=== PATIENT | female | born 1975 | race Caucasian/White ===

== ENCOUNTER 2016-06-11 20:29 | Emergency (ER) | payer OTHER ==
--- NOTE | 2016-06-11 20:46 | ED.PDOC ---
History of Present Illness - General Time Seen by Provider: 06/11/16 20:45 Source: patient, RN notes reviewed Exam Limitations: no limitations - History of Present Illness Initial Comments: Ms. Ivory James 41 y/o female working in a [employer] company stated that she was working on a concrete wall with a hammer felt something got into her left eye she tried to flushed it with water after the incident but left eye continue to hurt. Timing/Duration: this afternoon EENT Location: eye (L) Prearrival Treatment: flushing eyes Improving Factors: nothing Worsening Factors: other - photophobia Associated Symptoms: denies symptoms Allergies/Adverse Reactions: Allergies Sulfa Antibiotics Allergy (Verified 08/17/14 22:51) Home Medications: Ambulatory Orders predniSONE [Prednisone] 60 mg PO DAILY #18 tab 06/09/15 Cyclobenzaprine HCl [Flexeril] 10 mg PO Q6HRS PRN #20 tab 06/16/15 Tramadol HCl [Ultram] 50 mg PO Q6HRS PRN #30 tab 06/16/15 Review of Systems - Review of Systems Constitutional: States: no symptoms reported EENTM: States: see HPI Respiratory: States: no symptoms reported Cardiology: States: no symptoms reported Gastrointestinal/Abdominal: States: no symptoms reported Genitourinary: States: no symptoms reported Musculoskeletal: States: no symptoms reported Skin: States: no symptoms reported Neurological: States: no symptoms reported Endocrine: States: no symptoms reported Hematologic/Lymphatic: States: no symptoms reported Past Medical History (General) - Patient Medical History Hx Seizures: No Hx Stroke: No Hx Dementia: No Hx Asthma: No Hx of COPD: No Hx Cardiac Disorders: No Hx Congestive Heart Failure: No Hx Pacemaker: No Hx Hypertension: No Hx Thyroid Disease: No Hx Diabetes: No Hx Renal Disease: No Hx Cancer: No Hx of HIV: No Hx Hepatitis C: No Hx MRSA: No - Vaccination History Hx Tetanus, Diphtheria Vaccination: No Hx Influenza Vaccination: No Hx Pneumococcal Vaccination: No - Social History Hx Tobacco Use: Yes Hx Chewing Tobacco Use: No Hx Alcohol Use: Yes Hx Substance Use: No Hx Substance Use Treatment: No Hx Depression: Yes - occ Hx Physical Abuse: No Hx Emotional Abuse: No Hx Suspected Abuse: No - Female History Patient : No Family Medical History - Family History Mother Family History: No Known Living Status: Still Living Physical Exam - Physical Exam General Appearance: Alert, Anxious, No apparent distress Eye Exam: right normal, left other - hyperemic palpebral conjunctiva Skin Exam: normal color, warm/dry Comments: Alcaine eye drops instilled to left eye conjunctival [place] everted no FB noted fluorescein dye was instilled with positive uptake superior portion cornea left eye Progress - Results/Orders Results/Orders: [facility] left eye 20/20 right eye20/25 ou-20/20 - EKG/XRAY/CT Comments: left eyeball-no foreign body Departure - Departure Clinical Impression: Corneal abrasion, left Qualifiers: Encounter type: initial encounter Qualifier Code: (S05.02XA) Injury of conjunctiva and corneal abrasion without foreign body, left eye, initial encounter Time of Disposition: 22:47 Disposition: Discharge to Home or Self Care Condition: Good Instructions: DI for Corneal Abrasion, Corneal Abrasion Home Medications: Ambulatory Orders predniSONE [Prednisone] 60 mg PO DAILY #18 tab 06/09/15 Cyclobenzaprine HCl [Flexeril] 10 mg PO Q6HRS PRN #20 tab 06/16/15 Tramadol HCl [Ultram] 50 mg PO Q6HRS PRN #30 tab 06/16/15 Additional Instructions: Continue with Gentamicin eye drops 2 drops left eye 3x a day for 7 days;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
--- NOTE | 2016-06-11 22:40 | RAD ---
Procedure: XR EYE FOREIGN BODY Exam Date: 06/11/2016 Ordering Provider: Froy Pinto Clinical Indication: Foreign body Comparison: None Findings: There is no displaced facial bone fracture. The orbital rims are intact. The paranasal sinuses are clear. There are no lytic or sclerotic lesions. No radiopaque foreign bodies visualized. Impression: 1. No radiopaque foreign bodies visualized. Electronically signed by: Eduar Mccoy MD 06/11/2016 10:40 PM CDT
[2016-06-11] MEDS ORDERED: HYDROCOD/APAP 10/325 (ER DISP) # 3 tablets PO ONE (22:50)
[2016-06-11] MEDS ORDERED: GENTAMICIN OPTH SOL 0.3% 5ML BOTTLE OPHTH ONE (23:00)
[2016-06-11 23:09] VITALS: BP 108/73; TEMP 97.2; O2SAT 97
== END 2016-06-11 23:07 | disposition home or self-care (01) ==
LOC: ER 20:29
DX: S05.02XA Injury of conjunctiva and corneal abrasion without foreign body, left eye, initial encounter (principal); Z88.2 Allergy status to sulfonamides; Z87.891 Personal history of nicotine dependence; X58.XXXA Exposure to other specified factors, initial encounter; Y93.H3 Activity, building and construction; Y99.0 Civilian activity done for income or pay

== ENCOUNTER → 2017-04-08 | Outpatient (CLI) | payer OTHER | LOC: YCFC.O 11:10 | PROVIDERS: ATTEND Nurse Practitioner Family | DX: R68.89 Other general symptoms and signs (principal) ==

== ENCOUNTER 2018-04-18 10:46 | Emergency (ER) | payer SELFPAY ==
[2018-04-18] MEDS ORDERED: SODIUM CHLORIDE 0.9% (FLUSH) 10 ML SYG IV PRN (11:06)
[2018-04-18] MEDS ORDERED: ASPIRIN TABLET 325 MG TAB PO ONE (11:06)
--- NOTE | 2018-04-18 11:18 | ED.PDOC ---
History of Present Illness - General Chief Complaint: Chest Pain/HI Stated Complaint: Chest discomfort, anxiety Time Seen by Provider: 04/18/18 11:06 Source: patient - History of Present Illness Initial Comments: PT PRESENTS TO THE ER WITH COMPLAINT OF CHEST TIGHTNESS AND SOB THAT BEGAN SHORTLY BEFORE ARRIVAL. PT REPORTS BEING UNDER A LOT OF STRESS RECENTLY. PT DENIES MEDICAL HISTORY BUT ADMITS TO SMOKING CIGARETTES AND MARIJUANA DAILY. PT REPORTS HISTORY OF METH USE BUT STATES HASNT USED IN SEVERAL MONTHS. Timing/Duration: 1-3 hours Severity/Quality: moderate, tightness Location: substernal Chest Pain Radiation: no radiation Activities at Onset: none Improving Factors: nothing Worsening Factors: nothing Nitro Today/Relief: no nitro taken today Aspirin Treatment Today: no aspirin today Allergies/Adverse Reactions: Allergies Sulfa Antibiotics Allergy (Verified 04/18/18 10:54) Rash Home Medications: Ambulatory Orders NK 04/18/18 Review of Systems - Review of Systems Constitutional: Denies: chills, fever EENTM: Denies: nose congestion, throat pain Respiratory: States: short of breath. Denies: cough Cardiology: States: chest pain, palpitations. Denies: syncope Gastrointestinal/Abdominal: Denies: abdominal pain, diarrhea, nausea, vomiting Genitourinary: Denies: dysuria, frequency Musculoskeletal: Denies: joint pain, joint swelling Skin: Denies: change in color, lesions Neurological: States: anxiety, emotional problems Endocrine: States: no symptoms reported Past Medical History (General) - Patient Medical History Hx Seizures: No Hx Stroke: No Hx Dementia: No Hx Asthma: No Hx of COPD: No Hx Cardiac Disorders: No Hx Congestive Heart Failure: No Hx Pacemaker: No Hx Hypertension: No Hx Thyroid Disease: No Hx Diabetes: No Hx Renal Disease: No Hx Cancer: No Hx of HIV: No Hx Hepatitis C: No Hx MRSA: No Surgical History: no surgical history - Vaccination History Hx Tetanus, Diphtheria Vaccination: No Hx Influenza Vaccination: No Hx Pneumococcal Vaccination: No - Social History Hx Tobacco Use: Yes - 1/2 to 1 pack per day Hx Chewing Tobacco Use: No Hx Alcohol Use: Yes - Occasional Hx Substance Use: Yes - Marijuana Hx Substance Use Treatment: No Hx Depression: Yes - occ Hx Physical Abuse: No Hx Emotional Abuse: No Hx Suspected Abuse: No - Female History Patient is a Female of Child Bearing Age (10 -59 yrs old): Yes Patient : No Family Medical History - Family History Mother Family History: No Known Living Status: Still Living Physical Exam - Physical Exam General Appearance: Alert, Anxious, Well Developed, Well Groomed, Well Hydrated, Other - TEARFUL Eyes, Ears, Nose, Throat Exam: PERRL/EOMI, normal ENT inspection Neck: supple, normal inspection Respiratory: lungs clear, normal breath sounds, no respiratory distress Cardiovascular/Chest: regular rate, rhythm, no murmur Gastrointestinal/Abdominal: non tender, soft Neurologic: alert, oriented x 3 Skin Exam: normal color, warm/dry Progress - Progress Progress: 04/18/18 12:44 PT RESTING COMFORTABLY AND REPORTS COMPLETE RESOLUTION OF SYMPTOMS AFTER 0.5MG IV ATIVAN. LABS AND DIAGNOSTICS DISCUSSED. WILL REFER TO [facility] OR KRYSTINA GARCIA FOR EVALUATION FOR ANXIETY. - Results/Orders Results/Orders: Laboratory Tests 04/18/18 11:00 WBC 7.6 RBC 4.22 Hgb 13.6 Hct 40.6 MCV 96.1 MCH 32.3 H MCHC 33.6 RDW 13.1 Plt Count 347 MPV 6.5 L Absolute Neuts (auto) 4.20 Absolute Lymphs (auto) 2.50 Absolute Monos (auto) 0.50 Absolute Eos (auto) 0.30 Absolute Basos (auto) 0.00 Neutrophils % 55.3 Lymphocytes % 32.7 Monocytes % 7.1 Eosinophils % 4.4 Basophils % 0.5 PT 9.1 INR 0.91 PTT (SP) 23.7 Sodium 139 Potassium 3.7 Chloride 107 Carbon Dioxide 22 Anion Gap 13.7 BUN 11 Creatinine 0.59 L BUN/Creatinine Ratio 18.6 Random Glucose 82 Serum Osmolality 276.0 Calcium 9.4 Magnesium 2.0 Creatine Kinase 52 CK-MB (CK-2) 2.6 CK-MB (CK-2) % 5.00 H Troponin I < 0.02 B-Natriuretic Peptide 75.2 - EKG/XRAY/CT EKG: Sinus - @81BPM, NL INTERVALS, NL AXIS, no ST T wave changes, Unchanged from - 06/16/15 Departure - Departure Clinical Impression: Chest pain, Acute stress reaction Time of Disposition: 12:45 Disposition: Discharge to Home or Self Care Condition: Good Departure Forms: ED Discharge - Pt. Copy, Patient Portal Self Enrollment Instructions: DI for Chest Pain, Stress Referrals: KRYSTINA GARCIA [Other] - 1-5 Days (CALL FOR APPOINTMENT) Home Medications: Ambulatory Orders NK 04/18/18
--- NOTE | 2018-04-18 11:24 | RAD ---
Study: Single Frontal Radiograph of the Chest. Indication:chest pain Comparison: August 18, 2014 Impression: Heart size normal. Nipple shadow suspected at the lung bases, otherwise lungs clear. No acute osseous abnormality. Electronically signed by: Andrew Mahan MD 04/18/2018 11:21 AM [facility]
[2018-04-18 13:05] VITALS: BP 118/73; TEMP 98; O2SAT 98
== END 2018-04-18 13:00 | disposition home or self-care (01) ==
LOC: ER 10:46
DX: R07.89 Other chest pain (principal); F43.0 Acute stress reaction; F17.210 Nicotine dependence, cigarettes, uncomplicated; F12.90 Cannabis use, unspecified, uncomplicated; Z88.2 Allergy status to sulfonamides
CPT/HCPCS: 71045; 80048; 82550; 82553; 83880; 84484; 85025; 85610; 85730; 93005; 94760; J2060

== ENCOUNTER → 2019-08-23 | Outpatient (CLI) | payer SELFPAY ==
--- NOTE | 2019-08-23 11:06 | US ---
EXAM DESCRIPTION: Venous,Lower Extremity RT: ULTRASOUND. CLINICAL HISTORY: EDEMA OF LOWER EXTREMITY COMPARISON: None Available. TECHNIQUE: Edward-scale and doppler sonographic evaluation of the deep venous system of the right lower extremity. FINDINGS: Doppler evaluation shows normal color flow and normal phasicity and augmentation of the right common femoral vein, femoral vein, popliteal vein, greater/lesser saphenous vein, junction with the CFV. Also normal color flow and normal phasicity and augmentation of the peroneal, and posterior tibial vein. The right lower extremity deep veins were completely compressible; normal occlusion with transducer pressure. Edward-scale survey showed no echogenic thrombus within these veins. [place] cystic structure measuring 3.4 x 1.3 x 2.1 cm in the right popliteal fossa. IMPRESSION: 1. Duplex ultrasound evaluation of the right lower extremity deep venous system showing no evidence of thrombosis. 2. 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 Electronically signed by: Daniel Durant MD 08/23/2019 11:05 AM CDT
== END ==
LOC: US 09:42
PROVIDERS: ATTEND Family Medicine
DX: M71.21 Synovial cyst of popliteal space [Baker], right knee (principal)

== ENCOUNTER → 2019-08-23 | Outpatient (CLI) | payer OTHER | LOC: YCFC.O 09:54 | PROVIDERS: ATTEND Family Medicine | DX: R58 Hemorrhage, not elsewhere classified (principal) ==

== ENCOUNTER 2020-03-07 13:29 | Emergency (ER) | payer SELFPAY ==
[2020-03-07] MEDS ORDERED: KETOROLAC TROMETHAMINE INJ 60 MG/2 ML VIAL IM ONE (13:51)
[2020-03-07] MEDS ORDERED: CYCLOBENZAPRINE HCL 10 MG TAB PO ONE (13:51)
[2020-03-07] MEDS ORDERED: CYCLOBENZAPRINE HCL 10 MG TAB ONE (13:56)
--- NOTE | 2020-03-07 14:03 | ED.PDOC ---
History of Present Illness - General Chief Complaint: General Stated Complaint: left shoulder pain Time Seen by Provider: 03/07/20 13:33 - History of Present Illness Initial Comments: 45-year-old female who presents with chief complaint of left shoulder pain. Denies any known acute injuries or trauma. Pain began 2 weeks ago, initially was located to the posterior aspect of the shoulder. Pain seemed to ease up but then worsened again in the past couple of days. Now located primarily to the lateral shoulder region, constant, aching, 7/10 severity, occasionally radiates into the left lateral neck and also with tingling/numbness sensations down the arm, has been taking Tylenol and ibuprofen at home with little relief. Reports the pain seems to be worse at night. No history of similar symptoms in the past. Patient denies any weakness or decreased range of motion. Allergies/Adverse Reactions: Allergies Sulfa Antibiotics Allergy (Verified 04/18/18 10:54) Rash Home Medications: Ambulatory Orders Cyclobenzaprine HCl [Flexeril] 10 mg PO Q8H PRN 30 Days #30 tab 03/07/20 Review of Systems - Review of Systems Review of Systems: 03/07/20 14:02 as per HPI All other Systems: Reviewed and Negative Past Medical History (General) - Patient Medical History Hx Seizures: No Hx Stroke: No Hx Dementia: No Hx Asthma: No Hx of COPD: No Hx Cardiac Disorders: No Hx Congestive Heart Failure: No Hx Pacemaker: No Hx Hypertension: No Hx Thyroid Disease: No Hx Diabetes: No Hx Renal Disease: No Hx Cancer: No Hx of HIV: No Hx Hepatitis C: No Hx MRSA: No Surgical History: no surgical history - Vaccination History Hx Tetanus, Diphtheria Vaccination: No Hx Influenza Vaccination: No Hx Pneumococcal Vaccination: No - Social History Hx Tobacco Use: Yes Hx Chewing Tobacco Use: No Hx Alcohol Use: Yes - Occasional Hx Substance Use: Yes - Marijuana Hx Substance Use Treatment: No Hx Depression: Yes - occ Hx Physical Abuse: No Hx Emotional Abuse: No Hx Suspected Abuse: No - Female History Patient : No Family Medical History - Family History Mother Family History: No Known Living Status: Still Living Physical Exam - Physical Exam General Appearance: Alert, Comfortable, No apparent distress Eye Exam: bilateral normal Ears, Nose, Throat: normal ENT inspection Neck: non-tender, full range of motion, supple, normal inspection Respiratory: lungs clear, normal breath sounds, no respiratory distress Cardiovascular/Chest: normal peripheral pulses, regular rate, rhythm, no edema, no gallop, no JVD, no murmur Peripheral Pulses: radial,right: 2+, radial,left: 2+ Gastrointestinal/Abdominal: non tender, soft Back Exam: normal inspection, no CVA tenderness, no vertebral tenderness Extremity: normal range of motion, normal inspection, no pedal edema, no calf tenderness, normal capillary refill, other - Left shoulder appears normal on inspection. There is minimal tenderness to palpation to the left axillary region without masses or nodules or erythema. Range of motion/strength of the left upper extremity is normal. Patient reports slightly decreased sensation light touch in the left hand Neurologic: doctor of podiatric medicine II-XII nml as tested, no motor/sensory deficits, alert, normal mood/affect, oriented x 3 Skin Exam: normal color, warm/dry Progress - Progress Progress: 03/07/20 14:04 Acute left shoulder pain -Nontraumatic in nature. Consider glenohumeral arthritis, AC joint arthritis, pulled muscle, muscle spasm, nerve impingement. Consider also occult fracture, rotator cuff injury/impingement, other -Obtain x-ray imaging of the left shoulder -Cold pack and Toradol 60 mg IM along with Flexeril 10 mg p.o. for pain, reassess 03/07/20 15:04 -X-ray imaging of the left shoulder shows no acute processes per my read. -Patient reports feeling much better, pain nearly resolved. Discussed findings with patient. Etiology of pain remains uncertain but I suspect she is likely having muscle spasms of the left shoulder region. It may also be she is having some nerve impingement which would explain her radiating tingling/numbness sensation which tends to come and go. I advised that she continue the [id number] analgesics. I also will Rx Flexeril as needed. Advised ROM exercises to prevent stiffness and close PCP f/u. Dc home in good condition. Matt Burch MD Billing #[id number] Departure - Departure Clinical Impression: Muscle spasm of left shoulder Time of Disposition: 15:02 Disposition: Discharge to Home or Self Care Condition: Good Departure Forms: ED Discharge - Pt. Copy, Patient Portal Self Enrollment Instructions: Muscle Spasms (DC), Shoulder Pain (DC) Diet: resume usual diet Activity: increase activity as tolerated Referrals: Leonardo Palencia MD [Primary Care Provider] - 1-2 Weeks Prescriptions: Cyclobenzaprine HCl [Flexeril] 10 mg PO Q8H PRN 30 Days #30 tab PRN Reason: Muscle Spasms Home Medications: Ambulatory Orders Cyclobenzaprine HCl [Flexeril] 10 mg PO Q8H PRN 30 Days #30 tab 03/07/20 Additional Instructions: Continue taking [id number] medications to help reduce pain and inflammation such as ibuprofen 600 mg every 6 hours as needed and Tylenol 650 mg every 6 hours as needed. You may take the Flexeril as directed for muscle spasms. You may also continue to alternate warm and cool compresses to the area as you find may help. Continue to do range of motion exercises with the left shoulder 2-3 times daily to help prevent stiffness. Follow-up with your primary care doctor is recommended for repeat evaluation.
--- NOTE | 2020-03-07 14:29 | RAD ---
EXAM DESCRIPTION: Shoulder,Left 2 or More Views CLINICAL HISTORY: Acute nontraumatic L shoulder pain COMPARISON: None. IMPRESSION: 3 views of the left shoulder show no acute fracture, focal bone destruction, or joint dislocation. The left acromioclavicular joint is unremarkable. Electronically signed by: Som Milan MD 03/07/2020 2:[address] [facility]
[2020-03-07 15:19] VITALS: BP 116/74; TEMP 98.3; O2SAT 98
== END 2020-03-07 15:19 | disposition home or self-care (01) ==
LOC: ER 13:29
DX: M62.838 Other muscle spasm (principal); F32.9 Major depressive disorder, single episode, unspecified; Z87.891 Personal history of nicotine dependence; Z88.2 Allergy status to sulfonamides
CPT/HCPCS: 73030; J1885